=== PATIENT | female | born 1955 | race Caucasian/White ===

== ENCOUNTER → 2016-09-01 | Outpatient (CLI) | payer BC ==
[~2016-09-01] MED LIST: ALL60 PO; BNT10 PO; DONPERIDONE; FRC PO; HYOS1TAB PO; MOME50SP5; OXYC-57 PO; PANT40TA PO; PRM625 PO; SUMA25TA12 PO
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
== END | disposition home or self-care (01) ==
LOC: C.MAMM 13:59
PROVIDERS: ATTEND Internal Medicine
DX: Z12.31 Encounter for screening mammogram for malignant neoplasm of breast (principal)

== ENCOUNTER → 2017-01-27 | Outpatient (CLI) | payer BC | END | disposition home or self-care (01) | LOC: C.LABSPEC 15:06 | PROVIDERS: ATTEND Internal Medicine | DX: Z12.11 Encounter for screening for malignant neoplasm of colon (principal) ==

== ENCOUNTER → 2017-09-18 | Outpatient (CLI) | payer OTHER ==
--- NOTE | 2017-09-18 14:59 | MAMMOGRAPHY REPORT ---
BILATERAL DIGITAL SCREENING MAMMOGRAM TOMOSYNTHESIS WITH CAD: 09/18/2017 CLINICAL HISTORY: Routine screening. Patient has no complaints. TECHNIQUE: Breast tomosynthesis in addition to standard 2D mammography was performed. Current study was also evaluated with a Computer Aided Detection (CAD) system. COMPARISON: Comparison is made to exams dated: 09/01/2016 mammogram, 08/22/2015 mammogram, 08/17/2014 m ammogram, 07/22/2013 mammogram, 07/21/2012 mammogram, and 07/14/2011 mammogram - [facility] [address]. BREAST COMPOSITION: The tissue of both breasts is heterogeneously dense, which may obscure small mas ses. FINDINGS: No suspicious masses, calcifications, or areas of architectural distortion are noted in ei ther breast. There has been no significant interval change compared to prior exams. IMPRESSION: ACR BI-RADS CATEGORY 1: NEGATIVE There is no mammographic evidence of malignancy. A 1 year screening mammogram is recommended. The pa tient will receive written notification of the results. Approximately 10% of breast cancers are not detected with mammography. A negative mammographic report should not delay biopsy if a clinically suggestive mass is present. Nicole Eason M.D. ah/:09/18/2017 14:27:44 Profile Grinder Technician: Nany DENNIS(R)(M), [facility] letter sent: Normal 1/2 BI-RADS Code: ACR BI-RADS Category 1: Negative
== END | disposition home or self-care (01) ==
LOC: C.MAMM 12:52
PROVIDERS: ATTEND Internal Medicine
DX: Z12.31 Encounter for screening mammogram for malignant neoplasm of breast (principal)

== ENCOUNTER 2019-06-17 10:04 | Inpatient (IN) ==
--- NOTE | 2019-05-10 15:35 | PAT Medication Instructions ---
Medication Instructions Date of Service May 10, 2019 Home Medications [facility] [place] Advantage 1 tab PO QPM Premarin 0.625 mg PO QPM jxricmuzjw-habobzmgagbuy-iatq [Fioricet] 1 tab PO QDD PRN ibuprofen [Advil] 200 - 600 mg PO UD PRN omeprazole 20 mg PO DAILY PRN sumatriptan succinate [Imitrex] 1 tab PO UD PRN ASK your surgeon for instructions ibuprofen [Advil] 200 - 600 mg PO UD PRN Premarin 0.625 mg PO QPM lecxzvzsin-qvbhqoahbsmph-ibvx [Fioricet] 1 tab PO QDD PRN STOP taking 2 weeks before surgery (or as soon as possible if surgery is within 2 weeks) [facility] [place] Advantage 1 tab PO QPM Take morning of surgery omeprazole 20 mg PO DAILY PRN (if needed) sumatriptan succinate [Imitrex] 1 tab PO UD PRN (if needed) Other Notes If you have any questions please call us at [phone] or [phone] or [phone] or [phone]
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
--- NOTE | 2019-05-11 12:17 | XRay Report ---
XR chest Pre-admission PA/Lat HISTORY: 64 years-old Female PAT preoperative exam. No acute chest complaints COMPARISON: Chest radiograph 05/22/2018 TECHNIQUE: PA and lateral views of the chest FINDINGS: Cardiomediastinal and hilar silhouettes are unchanged. Postoperative changes of the left midlung late rally with probable mild adjacent pleural-parenchymal scarring. No pneumothorax, pleural effusion, fo chelita airspace consolidation or overt pulmonary edema. Bones of the chest appear grossly intact. IMPRESSION: Chronic findings without acute process. The above report was generated using voice recognition software. It may contain grammatical, syntax o r spelling errors. Electronically signed by: Harinder Marte M.D. 05/11/2019 12:16 PM
[2019-05-11 12:29] LABS: Basophils # (auto) 0.03 K/uL (0-0.2); Basophils % (auto) 0.5 %; Eosinophils # (auto) 0.07 K/uL (0-0.5); Eosinophils % (auto) 1.2 %; Hematocrit (blood only) 40.6 % (37-47); Hemoglobin 13.6 g/dL (12.0-16.0); Immature Granulocytes # (auto) 0.01 K/uL (0.00-0.02); Immature Granulocytes % (auto) 0.2 %; Lymphocytes # (auto) 1.74 K/uL (1.2-3.4); Lymphocytes % (auto) 28.6 %; Mean Corpuscular Hemoglobin 31.6 pg (25-34); Mean Corpuscular Hgb Conc 33.5 g/dL (32-36); Mean Corpuscular Volume 94.4 fL (80-100); Mean Platelet Volume 9.9 fL (7.4-10.4); Monocytes # (auto) 0.59 K/uL (0.11-0.59); Monocytes % (auto) 9.7 %; Neutrophils # (auto) 3.64 K/uL (1.4-6.5); Neutrophils % (auto) 59.8 %; Platelet Count 229 K/uL (130-400); RDW Coefficient of Variation 12.8 % (11.5-14.5); RDW Standard Deviation 44.4 fL (36.4-46.3); White Blood Count 6.08 K/uL (4.8-10.8)
[2019-05-11 12:37] LABS: Partial Thromboplastin Ratio 0.9; Partial Thromboplastin Time 24.6 Seconds (21.0-31.0); Prothrombin Time 10.2 Seconds (9.0-12.0)
[2019-05-11 12:44] LABS: BUN Creatinine Ratio 27.5 (10-20); C Reactive Protein 0.39 mg/dl (0-0.29); Calcium 9.1 mg/dl (8.5-10.1); Creatinine Clr Calc Pharmacy 92.1 ml/min; Est GFR (African American) 112.6; Est GFR (Non-African American) 97.2
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
[~2019-06-17 10:04] MED LIST changes: +ACETAMINOPHEN 500 MG TAB PO SCH; -ALL60 PO; -BNT10 PO; +BUPIVACAINE 0.5 % 5 MG/1 ML PF 10ML VIAL ONE; +BUPIVACAINE LIPOSOME/PF 266 MG, BUPIVACAINE/EPINEPHRINE 50 ML, SODIUM CHLORIDE 0.9% 30 ... INFIL SCH; +CEFAZOLIN 2000MG 2,000 MG/15 ML SYR IV SCH; -DONPERIDONE; +EPINEPHrine INJ 1 MG/ML AMP ONE; +FAMOTIDINE 20 MG TAB PO SCH; -FRC PO; +GABAPENTIN 600 MG DOSE PO SCH; -HYOS1TAB PO; +LR 15ML/HR IV SCH; +LR 60ML/HR IV SCH; +METOCLOPRAMIDE HCL 10 MG TABLET PO SCH; -MOME50SP5; -OXYC-57 PO; -PANT40TA PO; -PRM625 PO; +ROPIVACAINE 0.5% 5 MG/ML 30 ML VIAL ONE; +SCOPOLAMINE 1.5 MG TDSY TD SCH; -SUMA25TA12 PO; +TRANEXAMIC ACID 1,000 MG **IV Intra-op IV SCH
--- NOTE | 2019-06-17 10:34 | History & Physical Bridge Note ---
Date of Service June 17, 2019 History & Physical Bridge Note I have examined the patient, reviewed the History & Physical and in the interval since the performance of the History & Physical I have noted the following changes of clinical significance: no changes noted
[2019-06-17] MEDS ORDERED: fentaNYL citrate 100 MCG/2 ML VIAL ONE (12:05)
[2019-06-17] MEDS ORDERED: MIDAZOLAM HCL 1 MG/ML 2ML VIAL ONE ×2 (12:05→13:50)
[2019-06-17] MEDS ORDERED: SODIUM CHLORIDE 0.9% PF 50 ML VIAL ONE (12:57)
[2019-06-17] MEDS ORDERED: BUPIVACAINE LIPOSOME 1.3% 266 MG/20 ML VIAL ONE (12:57)
[2019-06-17] MEDS ORDERED: BUPIVACAINE 0.25% 30 ML VIAL ONE (12:57)
[2019-06-17] MEDS ORDERED: BACITRACIN INJ 50,000 UNIT VIAL ONE (12:57)
[2019-06-17] MEDS ORDERED: EPINEPHrine INJ 1 MG/ML AMP ONE (12:57)
[2019-06-17] MEDS ORDERED: PROPOFOL IV EMULSION 10 MG/ML 20 ML VIAL IV ONE (13:58)
[2019-06-17] MEDS ORDERED: LIDOCAINE HCL 2% 2 ML VIAL/AMP(20MG/ML) INFIL ONE (13:58)
[2019-06-17] MEDS ORDERED: ONDANSETRON INJ 2 MG/ML 2 ML VIAL ONE (14:41)
[2019-06-17] MEDS ORDERED: ATROPINE SULFATE 0.1 MG/ML 10ML SYR IV PRN (14:51)
[2019-06-17] MEDS ORDERED: ePHEDrine sulfate 50 MG/ML AMP IV PRN (14:51)
--- NOTE | 2019-06-17 14:53 | Post Operative Brief Note ---
PG Immediate Post Op with CF Date of Surgery June 17, 2019 Pre & Post Diagnosis Operation Date: 06/17/19 12:30 Pre-Op Diagnosis: Right Knee Degenerative Joint Disease Post-Op Diagnosis: Right Knee Degenerative Joint Disease I identified the patient and participated in the time-out.: Yes Procedure Operation Date: 06/17/19 12:30 Actual Procedures p Right Total Knee Arthroplasty(Right) - Rk Rodriguez MD Surgeon Rk Rodriguez MD Features Editor Baldev, PAC Estimated Blood Loss 50 Findings Consistent with Post-Op Diagnosis Fluids 1600 cc Specimens Specimen Description: Permanent Solution: A.) Right Knee Bone and Tissue Drains Blackwood Catheter (16 mosotho, 10ml balloon) Anesthesia Type Spinal MAC Complications none Disposition Accompanied Patient To Recovery: No Disposition: Recovery Room
--- NOTE | 2019-06-17 15:22 | XRay Report ---
XR knee RT 1 or 2V routine CLINICAL HISTORY: Postoperative evaluation. COMPARISON: Knee radiographs March 07, 2019. FINDINGS: Alignment of the total right knee arthroplasty is anatomic. There is no fracture or unexpe cted radiopaque foreign body. There are skin zafar. IMPRESSION: Expected findings following total right knee arthroplasty. Electronically signed by: Joseph Walker M.D. 06/17/2019 3:20 PM
--- NOTE | 2019-06-17 15:30 | Anesthesiology Progress Note ---
Date of Service June 17, 2019 Anesthesia Post Procedure Vital Signs Vital Signs: Temp Pulse Pulse Resp BP Pulse Ox 06/17/19 15:25 82 12 112/70 94 06/17/19 15:15 85 14 101/67 94 06/17/19 15:05 85 15 107/65 98 06/17/19 14:58 36.2 C L 80 12 116/69 94 06/17/19 10:40 36.9 C 79 18 129/90 95 Transfer of Care Handoff Completed per policy Notes Mental Status: alert / awake / arousable Patient Amnestic to Procedure: Yes Nausea / Vomiting: adequately controlled Pain: adequately controlled Airway Patency, RR, SpO2: stable & adequate BP & HR: stable & adequate Hydration State: stable & adequate Neuraxial Anesthesia: was administered and sensory block is resolving Anesthetic Complications: no major complications apparent
[2019-06-17] MEDS ORDERED: MAGNESIUM HYDROXIDE SUSP 30 ML UDC PO PRN (16:05)
[2019-06-17] MEDS ORDERED: METOCLOPRAMIDE HCL INJ 5 MG/ML 2 ML VIAL IV PRN (16:05)
[2019-06-17] MEDS ORDERED: NALOXONE HCL 0.4 MG/1 ML VIAL/CARP IV PRN (16:05)
[2019-06-17] MEDS ORDERED: SODIUM CHLORIDE 0.9% 1000ML 1,000 ML IV SCH (16:05)
[2019-06-17] MEDS ORDERED: SUMAtriptan succinate 50 MG TAB PO PRN (16:05)
[2019-06-17] MEDS ORDERED: ALUMINUM/MAGNESIUM SUSP 30 ML UDC PO PRN (16:05)
[2019-06-17] MEDS ORDERED: BISACODYL 10 MG SUPP PR PRN (16:05)
[2019-06-17] MEDS: CHECK SCOPOLAMINE PATCH PLACEMENT SCH ×2 (16:31→23:49)
[2019-06-17] MEDS ORDERED: BUTALBITAL/ACETAMIN/CAFFEINE TAB PO PRN (16:44)
[2019-06-17] MEDS ORDERED: PANTOprazole 40 MG TAB PO PRN (16:45)
[2019-06-17] MEDS: FERROUS GLUCONATE 324 MG TAB PO SCH (17:37)
[2019-06-17] MEDS: ASCORBIC ACID 500 MG TAB PO SCH (17:37)
[2019-06-17] MEDS: KETOROLAC 30 MG/ML VIAL IV SCH ×2 (17:38→23:49)
--- NOTE | 2019-06-17 17:40 | Operative Report ---
Post Operative Report Pre & Post Diagnosis Operation Date: 06/17/19 12:30 Pre-Op Diagnosis: Right Knee Degenerative Joint Disease Post-Op Diagnosis: Right Knee Degenerative Joint Disease I identified the patient and participated in the time-out.: Yes Procedure Operation Date: 06/17/19 12:30 Actual Procedures p Right Total Knee Arthroplasty(Right) - Rk Rodriguez MD Surgeon Rk Rodriguez MD Housing And Residence Life Director Baldev, PAC Estimated Blood Loss 50 Findings Consistent with Post-Op Diagnosis Operative findings revealed advanced right knee DJD. She had extensive grade 4 ifqy-ai-ucnz disease and eburnation of the patellofemoral joint extensively. She had spotty grade 4 vhma-yy-fhip disease of both medial and lateral compartments. She had a moderate-sized joint effusion. She had osteophytes in all 3 compartments. Fluids 1600 cc Specimens Right knee sent for pathology. Anesthesia Type Spinal MAC Complications none Disposition Accompanied Patient To Recovery: No Disposition: Recovery Room Indications Patient is a 64-year-old female with a long history of bilateral knee pain discomfort. She been through extensive conservative treatment over the years. She had her left knee replaced about a year ago is done well with this. She continued to be limited by right knee pain. She failed conservative care and elected proceed with operative treatment. Description of Procedure Operative implants consisted of: 1. Biomet Vanguard size 60 right posterior bifemoral component. 2. Biomet Vanguard size 63 tibial tray. 3. Biomet 10 mm posterior stabilized polyethylene insert. 4. 28 x 8 all poly-patella. Patient was taken to the operating room identified and placed on the operating table supine position. Contact there is probably padded. IV antibiotics 5 by anesthesia team. A spinal anesthetic and abductor canal block had provided in the holding area. Blackwood catheter was placed in a sterile fashion. Right thigh tourniquet was then placed in the right lower extremities and prepped and draped in usual sterile fashion. The right leg was elevated and exsanguinated with use of an Esmarch and return was placed at 300 mmHg. An anterior approach to the right knee was then performed to a longitudinal incision centered over the patella. Sharp dissection was Through the subcutaneous tissue down to level the extensor mechanism. A medial parapatellar arthrotomy incision was made. Some subperiosteal dissection was carried out medially for the fat pad resected from beneath patella tendon. Lateral patellofemoral ligament was released. Patella was subluxated laterally and the knee was flexed. The osteophytes were taken off the distal femur. The ACL and PCL were then released from the distal femur the tibia subluxated anteriorly. The external tibial alignment jig was then placed in the interface of the tibia and adjusted 12 mm medially. Proximal tibial cut was made to remove about 3 to 4 mm of bone from the most efficient aspect the medial tibial plateau. The tibia was sized to a size 63. Attention down the femur. New breath distal femurs and with the sharp drill. Intramedullary canal was suction. A right 5 degree valgus cutting guide was placed. The distal femoral cutting block was pinned in place. The distal femoral cut was made to take an additional 3 mm of bone off the distal femur. The femur was then sized to a size 60. We did down size this slightly. The AP cutting block was pinned parallel to the epicondylar axis which was 6 degrees of external rotation. The anterior cut, anterior chamfer, posterior cut, posterior chamfer cuts were made. The box cutting guide was placed and just slightly lateral and the box cut was made to the knee was flexed for the remnants of the medial lateral menisci were excised with the osteophytes were taken off the posterior aspect the femur. A trial femoral component was placed but the tibial tray was pinned in maximum external rotation and the drill and stem punch we used to create defect in the proximal tip for the tibial tray. The knee was then trialed and the 10 mm insert fit most appropriately. Attention down the patella. The patella was cleaned of all soft tissues. Patella was quite worn measured about 18 mm in thickness. Was cut down to 12. Size a size 28 patella. Lug holes were drilled for the 28 patella. The lateral osteophyte is moved. Patella button was placed. Knee was taken through range of motion patella tracked nicely with no thumbs test. Attention turned to placing the permanent components. All trial components were removed. A bone plug was placed in the disc femur limit blood loss. A double batch Palacos G cement was mixed. A Biomet Vanguard size 60 right posterior bifemoral component, size 63 tibial tray, a 10 mm posterior stabilized polyethylene insert, and a 28 x 8 all poly-patella then cement placed. He was brought out in full extension until cement hardened. Final cement check was then performed. The pericapsular tissues were injected with total of 100 cc of combination of 20 cc of Exparel, 30 cc of normal saline, 50 cc of quarter percent Marcaine with epinephrine. The patient did receive 1 g of tranexamic acid per the tourniquet was then let down for final tourniquet time of 51 minutes. Hemostasis assured with electrocautery. The wounds once again irrigated. The extensor macros then closed with combination 1 PDS suture #1 Vicryl suture in [id number]-vm-[id number] fashion. Extensor mechanism checked found to be intact the subtenons tissue then closed with 2 Dexon suture in a buried knot fashion skin was closed skin zafar. Leg was then cleaned dried and sterile dressing with Xeroform for 4 sterile cast padding Nii bandage were applied. Patient then transferred to the recovery room in stable condition. Patient tolerated procedure well no comp case but on sponge counts are correct at the end the operation. I attest to the content of the Intraoperative Record and any orders documented therein. Any exceptions are noted below.
[2019-06-17] MEDS: TRAMADOL HCL 50 MG TABLET PO PRN (19:27)
[2019-06-17] MEDS: ASPIRIN 81 MG ECTAB PO SCH (20:34)
[2019-06-17] MEDS: SENNA 8.6 MG TAB PO SCH (20:34)
[2019-06-17] MEDS: CEFAZOLIN 1000MG 1,000 MG/7.5 ML SYR IV SCH (20:34)
[2019-06-17] MEDS: ESTROGENS, CONJUGATED 0.625 MG TAB PO SCH (20:34)
[2019-06-17] MEDS: DOCUSATE SODIUM 100 MG CAP PO SCH (20:34)
[2019-06-17] MEDS ORDERED: TRANEXAMIC ACID 1,000 MG in 0.9 % SODIUM CHLORIDE 100 ML IV SCH (20:58)
[2019-06-17] MEDS ORDERED: [UNRECOGNIZED DRUG - MIXTURE] PO SCH (21:00)
[2019-06-17] MEDS: ACETAMINOPHEN 500 MG TAB PO SCH (21:03)
[2019-06-17] MEDS: ONDANSETRON INJ 2 MG/ML 2 ML VIAL IV PRN (21:29)
[2019-06-17] MEDS: HYDROmorphone INJ 0.5 MG/0.5 ML SYR IV PRN (21:29)
[2019-06-18] MEDS: CEFAZOLIN 1000MG 1,000 MG/7.5 ML SYR IV SCH (04:01)
[2019-06-18] MEDS: TRAMADOL HCL 50 MG TABLET PO PRN ×3 (04:02→21:25)
[2019-06-18] MEDS: ONDANSETRON INJ 2 MG/ML 2 ML VIAL IV PRN ×2 (05:10→12:25)
[2019-06-18 05:46] LABS: Hematocrit (blood only) 32.4 % (37-47); Hemoglobin 10.9 g/dL (12.0-16.0); Mean Corpuscular Hemoglobin 31.9 pg (25-34); Mean Corpuscular Hgb Conc 33.6 g/dL (32-36); Mean Corpuscular Volume 94.7 fL (80-100); Mean Platelet Volume 9.5 fL (7.4-10.4); Platelet Count 188 K/uL (130-400); RDW Coefficient of Variation 12.9 % (11.5-14.5); RDW Standard Deviation 44.4 fL (36.4-46.3); Red Blood Count 3.42 M/uL (4.2-5.4); White Blood Count 8.13 K/uL (4.8-10.8)
[2019-06-18] MEDS: KETOROLAC 30 MG/ML VIAL IV SCH ×4 (05:53→23:56)
[2019-06-18] MEDS: ACETAMINOPHEN 500 MG TAB PO SCH ×3 (05:53→21:24)
[2019-06-18 06:16] LABS: BUN Creatinine Ratio 23.9 (10-20); Creatinine Clr Calc Pharmacy 89.6 ml/min; Est GFR (African American) 111.4; Est GFR (Non-African American) 96.1; Potassium 3.7 mmol/L (3.5-5.1)
--- NOTE | 2019-06-18 08:57 | Progress Note ---
DATE: 06/17/2019 SUBJECTIVE: A 64-year-old female postop day 1 from a right knee replacement. She is doing pretty well. Had a couple bouts of pretty severe pain but responded to pain medicines and under control now. No chest pain or shortness of breath. Not feeling dizzy or lightheaded. OBJECTIVE: VITAL SIGNS: Temperature 36.8. Vital signs stable. GENERAL: Shows a pleasant, middle-aged female. She is sitting in her bedside chair, looks pretty comfortable. EXTREMITIES: Examination of the right leg reveals the dressing to be clean, dry and intact. She can dorsiflex and plantarflex her foot appropriately. She can do a straight leg raise with some effort. She is neurologically intact. LABORATORY DATA: Hemoglobin is 10.9. Hematocrit 32.4. Electrolytes are stable. ASSESSMENT: A 64-year-old female postop day 1 from a right knee replacement, doing reasonably well. Pain is reasonably well controlled. She is neurologically intact. PLAN: 1. DVT prophylaxis including thigh-high TEDs, SCDs, and aspirin twice a day. 2. PT/OT. Weight bear as tolerated. Right total knee protocol. 3. Pain control, doing okay with current pain regimen. 4. Disposition: Plan to be discharged to home with some home health once adequately recovered and medically stable.
[2019-06-18] MEDS: DOCUSATE SODIUM 100 MG CAP PO SCH ×2 (09:32→21:24)
[2019-06-18] MEDS: ASPIRIN 81 MG ECTAB PO SCH ×2 (09:32→21:24)
[2019-06-18] MEDS: ASCORBIC ACID 500 MG TAB PO SCH ×2 (09:32→16:13)
[2019-06-18] MEDS: FERROUS GLUCONATE 324 MG TAB PO SCH ×2 (09:33→16:13)
[2019-06-18] MEDS: MULTIVITAMIN TAB PO SCH (09:33)
[2019-06-18] MEDS: HYDROmorphone INJ 0.5 MG/0.5 ML SYR IV PRN (16:13)
[2019-06-18] MEDS: ESTROGENS, CONJUGATED 0.625 MG TAB PO SCH (21:24)
[2019-06-18] MEDS: SENNA 8.6 MG TAB PO SCH (21:25)
[2019-06-19] MEDS: HYDROmorphone INJ 0.5 MG/0.5 ML SYR IV PRN (02:38)
[2019-06-19] MEDS: ACETAMINOPHEN 500 MG TAB PO SCH (05:55)
[2019-06-19] MEDS: KETOROLAC 30 MG/ML VIAL IV SCH (05:56)
[2019-06-19] MEDS: TRAMADOL HCL 50 MG TABLET PO PRN (07:48)
[2019-06-19] MEDS: DOCUSATE SODIUM 100 MG CAP PO SCH (07:49)
[2019-06-19] MEDS: FERROUS GLUCONATE 324 MG TAB PO SCH (07:49)
[2019-06-19] MEDS: ASCORBIC ACID 500 MG TAB PO SCH (07:49)
[2019-06-19] MEDS: ASPIRIN 81 MG ECTAB PO SCH (07:49)
[2019-06-19] MEDS: MULTIVITAMIN TAB PO SCH (07:49)
--- NOTE | 2019-06-19 08:58 | Progress Note ---
DATE: 06/19/2019 SUBJECTIVE: A 64-year-old white female postop day 2 from a right total knee arthroplasty. She is doing better today. Nausea is resolved. She is not feeling dizzy or lightheaded. Pain is controlled. OBJECTIVE: VITAL SIGNS: Temperature 36.6. Vital signs stable. GENERAL: Shows a pleasant, middle-aged female. She is sitting up in bed, looks comfortable. EXTREMITIES: Examination of the right leg reveals the leg to be well aligned. Dressing is clean, dry and intact. No significant drainage. Calf is soft and supple. She is neurologically intact. ASSESSMENT: A 64-year-old white female postop day 2 from right knee replacement, doing pretty well. Pain is controlled. Nausea is improved. PLAN: 1. DVT prophylaxis including thigh-high TEDs, SCDs and aspirin twice a day. 2. PT/OT. Weight bear as tolerated. Right total knee protocol. 3. Pain control, doing pretty well with current pain regimen. We will continue Tylenol around the clock and tramadol as needed. 4. Disposition. Plan to discharge to home with some home health later today.
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
== END 2019-06-19 10:59 | disposition home health service (06) | DRG 470 ==
LOC: ASU 10:04 → 3E 15:03